=== PATIENT | male | born 1955 | race Hispanic/Latino ===

== ENCOUNTER 2017-11-22 08:04 | Inpatient (IN) | payer MEDICAID ==
--- NOTE | 2017-11-22 08:44 | ED PDOC ---
Arrival/HPI - General Historian: Patient - History of Present Illness Narrative History of Present Illness (Text): 11/22/17 08:36 Patient is 62 year old male with a past medical history of CAD s/p 1 stent (09/2016), KS x 1 (09/2016), DM, HTN, PAD (s/p 1 stent in left leg) and colon cancer (s/p resection) presenting to the emergency for worsening chest pain since last night. Chest pain started last night while he was laying down. The pain is located on the left side of his chest radiating down his left arm, across his chest down his right arm and up the left side of his neck. The pain is stabbing in nature and has been constant. The pain is exactly the same as when he had an KS last year. He took two Aspirin 325mg this morning. Nothing improves the pain and nothing makes it worse. He decided to come to the emergency room because the pain was not improving. He denies any nausea, vomiting, diaphoresis, shortness of breath, lightheadedness or dizziness. Patient is also complaining of left shoulder pain. Reports a couch falling his left shoulder and has been experiencing pain/soreness over since. PMD: none PMH: CAD s/p 1 stent (09/2016), KS x 1 (09/2016), DM, HTN, PAD (s/p 1 stent in left leg) and colon cancer (s/p resection) Social: recently moved to [place] from [place] to help take care of his mother. Still smokes half a pack per day, previous alcohol abuse, previously used to smoke crack but has not for "many years". Time/Duration: Other (12 hours) Symptom Onset: Sudden Symptom Course: Worsening Quality: Stabbing <Tee Vidal - Last Filed: 11/22/17 10:33> <Benjamin Kaur - Last Filed: 11/22/17 11:45> - General Chief Complaint: Chest Pain Time Seen by Provider: 11/22/17 08:18 Past Medical History - Provider Review Nursing Documentation Reviewed: Yes - Infectious Disease Hx of Infectious Diseases: None - Cardiac Hx Hypertension: Yes - Pulmonary Hx Respiratory Disorders: No - Neurological Hx Neurological Disorder: No - Endocrine/Metabolic Hx Diabetes Mellitus Type 2: Yes - Gastrointestinal Other/Comment: colon ca, abd hernia - Psychiatric Hx Substance Use: No - Anesthesia Hx Anesthesia: No <eTe Vidal - Last Filed: 11/22/17 10:33> Family/Social History - Physician Review Nursing Documentation Reviewed: Yes Family/Social History: Unknown Family HX Smoking Status: Heavy Smoker > 10 Cigarettes Daily Hx Alcohol Use: No Hx Substance Use: No <Tee Vidal - Last Filed: 11/22/17 10:33> Allergies/Home Meds <Tee Vidal - Last Filed: 11/22/17 10:33> <Benjamin Kaur - Last Filed: 11/22/17 11:45> Allergies/Adverse Reactions: Allergies No Known Allergies Allergy (Verified 11/22/17 08:24) Home Medications: Home Meds Medication Instructions Recorded Confirmed No Known Home Med 11/22/17 11/22/17 Review of Systems - Physician Review All systems were reviewed & negative as marked: Yes - Review of Systems Constitutional: Normal. absent: Fatigue, Fevers Eyes: Normal. absent: Vision Changes ENT: Normal Respiratory: Normal. absent: SOB Cardiovascular: Chest Pain, Orthopnea. absent: Palpitations, Edema, Calf Pain, Syncope Gastrointestinal: Normal. absent: Abdominal Pain, Constipation, Nausea, Vomiting Musculoskeletal: Neck Pain (left sided) Skin: Normal Neurological: Normal. absent: Headache, Dizziness Endocrine: Normal. absent: Diaphoresis Psychiatric: Normal <Tee Vidal - Last Filed: 11/22/17 10:33> Physical Exam Vital Signs Reviewed: Yes Vital Signs Temp Pulse Resp BP Pulse Ox 11/22/17 08:11 98.8 F 68 18 121/87 99 Temperature: Afebrile Blood Pressure: Normal Pulse: Regular Respiratory Rate: Normal Appearance: Positive for: Well-Appearing, Non-Toxic, Comfortable Pain Distress: None Mental Status: Positive for: Alert and Oriented X 3 - Systems Exam Head: Present: Atraumatic, Normocephalic Pupils: Present: PERRL Extroacular Muscles: Present: EOMI Conjunctiva: Present: Normal Mouth: Present: Moist Mucous Membranes Nose (External): Present: Atraumatic Neck: Present: Normal Range of Motion. No: Lymphadenopathy Respiratory/Chest: Present: Clear to Auscultation, Good Air Exchange. No: Respiratory Distress, Accessory Muscle Use Cardiovascular: Present: Regular Rate and Rhythm, Normal S1, S2. No: Murmurs, Rub, Gallop Abdomen: Present: Other (obese). No: Tenderness, Distention, Peritoneal Signs Upper Extremity: Present: Normal Inspection. No: Cyanosis, Edema, Tenderness, Erythema Lower Extremity: Present: Normal Inspection, Edema (2+ pitting b/l). No: CALF TENDERNESS, NORMAL PULSES Neurological: Present: GCS=15, CN II-XII Intact, Speech Normal Skin: Present: Warm, Dry, Normal Color. No: Rashes Psychiatric: Present: Alert, Oriented x 3, Normal Insight, Normal Concentration <Tee Vidal - Last Filed: 11/22/17 10:33> Vital Signs Temp Pulse Resp BP Pulse Ox 11/22/17 11:22 89 18 143/66 95 11/22/17 10:55 73 18 109/48 L 98 11/22/17 10:05 86 18 98/74 L 98 11/22/17 09:07 98 H 18 121/69 98 11/22/17 08:11 98.8 F 68 18 121/87 99 <Benjamin Kaur - Last Filed: 11/22/17 11:45> Medical Decision Making ED Course and Treatment: 11/22/17 08:36 Patient is a 62 year old male with known CAD s/p 1 stent presenting with worsening chest pain since last night. Patient took two Aspirin 325mg tablets this morning. EKG: Sinus rhythm @70bpm with multiple PVCs, no ST elevations or depressions * No previous EKG for comparison Give Nitro 0.4mg SL Labs CXR Patient also complaining of left shoulder pain x2 months after couch fell on his shoulder. Will obtain shoulder XR. 11/22/17 09:51 Patient has become diaphoretic but states that his chest pain has resolved with the nitro. BP dropped to 85/60 --> give 1L bolus of NS 11/22/17 10:34 Repeat EKG: sinus rhythm with sinus arrhythmia @73bpm, normal axis, no ST segment elevations or depressions. Trop negative. Elevated blood glucose, currently giving fluids - patient reports drinking large mug of apple cider prior to coming to hospital. Case discussed with Dr. Qi Cruz (Hospitalist) who has accepted patient to hospitalist service for tele obs, chest pain r/o ACS. - Lab Interpretations I have reviewed the lab results: Yes - RAD Interpretation Narrative RAD Interpretations (Text): 11/22/17 09:43 CXR: No active disease. Radiology Orders: 11/22/17 08:32 CHEST PORTABLE [RAD] Stat Almond Blancher Operator: Radiologist <Tee Vidal - Last Filed: 11/22/17 10:33> ED Course and Treatment: 10:34 62 yr old male w/ hx of KS, Stent p/w CP. Moderate risk Heart score. 1st trop negative, EKG w/ out STEMI. CXR unremarkable. Admitted to Dr. Tyson Wakefield service. - Lab Interpretations Lab Results: 11/22/17 09:40 11/22/17 09:40 Lab Results 11/22/17 09:40: TSH 3rd Generation 1.99 11/22/17 09:40: Sodium 133, Potassium 4.5, Chloride 99, Carbon Dioxide 23, Anion Gap 15, BUN 20, Creatinine 0.6 L, Est GFR ( Amer) > 60, Est GFR (Non-Af Amer) > 60, Random Glucose 421 H*, Calcium 9.0, Total Bilirubin 0.5, AST 21, ALT 22, Alkaline Phosphatase 104, Troponin I 0.01, NT-Pro-B Natriuret Pep 52.5, Total Protein 8.2, Albumin 4.1, Globulin 4.1, Albumin/Globulin Ratio 1.0 L 11/22/17 09:40: PT 11.0, INR 0.96, APTT 26.5 11/22/17 09:40: WBC 9.1, RBC 5.30, Hgb 16.5, Hct 46.4, MCV 87.5, MCH 31.1, MCHC 35.6, RDW 13.2, Plt Count 217, MPV 10.2, Gran % 52.3, Lymph % (Auto) 38.3 H, Bryan % (Auto) 7.2 H, Eos % (Auto) 1.5, Baso % (Auto) 0.7, Gran # 4.76, Lymph # (Auto) 3.5 H, Bryan # (Auto) 0.7 H, Eos # (Auto) 0.1, Baso # (Auto) 0.06 - RAD Interpretation Radiology Orders: 11/22/17 08:32 CHEST PORTABLE [RAD] Stat 11/22/17 09:46 SHOULDER LEFT [RAD] Routine - Medication Orders Current Medication Orders: Discontinued Medications Sodium Chloride (Sodium Chloride 0.9%) 1,000 mls @ 999 mls/hr IV .Q1H1M STA Stop: 11/22/17 10:50 Last Admin: 11/22/17 10:07 Dose: 999 mls/hr eMAR Start Stop Document 11/22/17 10:07 EAR (Rec: 11/22/17 10:07 EAR [id number]) Intravenous Solution Start Date 11/22/17 Start Time 10:07 End Date 11/22/17 End time 11:10 Total Infusion Time 63 Nitroglycerin (Nitrostat Sl Tab) 0.4 mg SL STAT STA Stop: 11/22/17 08:53 Last Admin: 11/22/17 09:06 Dose: 0.4 mg <Benjamin Kaur - Last Filed: 11/22/17 11:45> - PA / COLLEGE COUNSELOR / Resident Statement / has examined the patient and agrees with the treatment plan. <Benjamin Kaur - Last Filed: 11/22/17 11:45> Disposition/Present on Arrival - Present on Arrival History of DVT/PE: No History of Uncontrolled Diabetes: No Urinary Catheter: No History of Decub. Ulcer: No History Surgical Site Infection Following: None <Tee Vidal - Last Filed: 11/22/17 10:33> - Present on Arrival Any Indicators Present on Arrival: No - Disposition Have Diagnosis and Disposition been Completed?: Yes Disposition Time: 10:34 <Benjamin Kaur - Last Filed: 11/22/17 11:45> - Disposition Diagnosis: Chest pain Condition: GOOD
--- NOTE | 2017-11-22 09:38 | RAD ---
Date of service: 11/22/2017 HISTORY: cp COMPARISON: No prior. FINDINGS: LUNGS: No active pulmonary disease. PLEURA: No significant pleural effusion identified, no pneumothorax apparent. CARDIOVASCULAR: Normal. OSSEOUS STRUCTURES: No significant abnormalities. VISUALIZED UPPER ABDOMEN: Normal. OTHER FINDINGS: None. IMPRESSION: No active disease.
[2017-11-22] MEDS ORDERED: Sodium Chloride 0.9% 1,000 ML IV STA ×2 (09:50→15:27)
--- NOTE | 2017-11-22 09:51 | CARD ---
APPROVED REPORT Date of service: 11/22/2017 EKG Measurement Heart [id number] <Conclusion> Sinus rhythm with occasional premature ventricular complexes Q V1-V2 Possible Old Septal infarct?
[2017-11-22 09:58] LABS: BASO # 0.06 K/mm3 (0.0-2.0); BASO % 0.7 % (0.0-3.0); EOS # 0.1 (0.0-0.7); EOS % 1.5 % (1.5-5.0); GRAN # 4.76 (1.4-6.5); GRAN % 52.3 % (50.0-68.0); HEMOGLOBIN 16.5 g/dL (14.0-18.0); LYMPH # 3.5 (1.2-3.4); LYMPH % 38.3 % (22.0-35.0); MEAN CELL VOLUME 87.5 fl (80.0-105.0); MEAN CORPUSCULAR HEMOGLOBIN 31.1 pg (25.0-35.0); MEAN CORPUSCULAR HGB CONC 35.6 g/dl (31.0-37.0); MEAN PLATELET VOLUME 10.2 fl (7.0-11.0); MONO # 0.7 (0.1-0.6); MONO % 7.2 % (1.0-6.0); RBC 5.3 10^6/uL (3.5-6.1); RED CELL DISTRIBUTION WIDTH 13.2 % (11.5-14.5); WHITE BLOOD COUNT 9.1 10^3/ul (4.5-11.0)
[2017-11-22 10:06] LABS: INR 0.96; PARTIAL THROMBOPLASTIN TIME 26.5 Seconds (25.1-36.5)
[2017-11-22 10:11] LABS: ALBUMIN 4.1 g/dL (3.0-4.8); ALT/SGPT 22 U/L (7-56); AST/SGOT 21 U/L (17-59); BLOOD UREA NITROGEN 20 mg/dL (7-21); GFR NON-AFRICAN AMERICAN > 60
[2017-11-22 10:15] LABS: B-TYPE NATRIURETIC PEPTIDE 52.5 pg/mL (0-450); TROPONIN I 0.01 ng/mL
[2017-11-22] MEDS ORDERED: Albuterol-Ipratrop 3 mg / 0.5 (3 ml) UD IH PRN (11:39)
[2017-11-22] MEDS ORDERED: Dextrose 50% SYRINGE Inj (50 ml) IV PRN (11:40)
--- NOTE | 2017-11-22 12:31 | CP.PCM.HP ---
<Marlene Galdamez - Last Filed: 11/22/17 17:48> History of Present Illness - History of Present Illness History of Present Illness: History and Physical for Dr. Sirisha Cruz CC: Chest pain Mr. Mccauley is a 62M with PMH HTN, DM, CAD (s/r stent 2017), PAD (s/p stent left leg), OK 2917, Colon Cancer (s/p resection) who presents today to [facility] [place] [facility] ED with worsening sharp chest pain that has not been resolved with taking two 325mg ASA this am. Patient states that he has intermittent chest pain chronically at rest but was concerned when his pain was not improving over the past 24 hours. He additionally complains of bilateral shoulder pain which he states has been present since before his chest pain and endorses that his left shoulder pain began after an injury moving a couch several months ago. He denies any aggravating or alleviating factors, CUTLER, neck pain, SOB, abdominal pain, and lower extremity pain. PMH:HTN, DM, CAD s/p stent x1 (2017), PAD s/p stent x1 left leg, OK in 2017 PSH: cardiac stent placement. left leg stent placement, coloon cancer resection Social: previous ETOH and crack cocaine abuse, current 1/2 ppd smoker (previously 5ppd x 40yrs) Home Meds: patient takes ASA at home for chest pain but is noncompliant with all other medications Family HX: mother alive with glaucoma, father from bleeding complications (patient unsure of specifics) all: nkda PMD: recently moved no PMD Present on Admission - Present on Admission Any Indicators Present on Admission: Yes History of Uncontrolled Diabetes: Yes Review of Systems - Review of Systems All systems: reviewed and no additional remarkable complaints except (as per HPI) Past Patient History - Infectious Disease Hx of Infectious Diseases: None - Past Social History Smoking Status: Heavy Smoker > 10 Cigarettes Daily - CARDIAC Hx Hypertension: Yes - PULMONARY Hx Respiratory Disorders: No - NEUROLOGICAL Hx Neurological Disorder: No - ENDOCRINE/METABOLIC Hx Diabetes Mellitus Type 2: Yes - GASTROINTESTINAL Other/Comment: colon ca, abd hernia - PSYCHIATRIC Hx Substance Use: No - ANESTHESIA Hx Anesthesia: No Meds Allergies/Adverse Reactions: Allergies Allergy/AdvReac Type Severity Reaction Status Date / Time No Known Allergies Allergy Verified 11/22/17 08:24 Physical Exam - Constitutional Appears: Well, Non-toxic, No Acute Distress - Head Exam Head Exam: ATRAUMATIC, NORMOCEPHALIC - Eye Exam Eye Exam: EOMI - ENT Exam ENT Exam: Mucous Membranes Moist - Respiratory Exam Respiratory Exam: Wheezes (inspiratoy and expiratory wheezes bilaterally in all 5 lobes) - Cardiovascular Exam Cardiovascular Exam: REGULAR RHYTHM. absent: JVD - GI/Abdominal Exam GI & Abdominal Exam: Hernia (large ventral hernia, soft nontender, no overlying skin changes, umbilical hernia is present and reducible as well), Soft. absent: Distended, Firm, Guarding, Rigid, Tenderness Additional comments: large vertical midline scar, two 5-7 cm scars noted in the LLQ and the RLQ - Extremities Exam Extremities exam: Positive for: normal capillary refill, pedal pulses present. Negative for: calf tenderness, pedal edema, tenderness Additional comments: extremities warm and well perfused, radial pulses 2+ bilaterally - Neurological Exam Neurological exam: Alert, Oriented x3 - Psychiatric Exam Psychiatric exam: Normal Affect, Normal Mood - Skin Skin Exam: Dry, Intact, Normal Color, Warm Results - Vital Signs Recent Vital Signs: Last Vital Signs Temp 98.8 F 11/22/17 08:11 Pulse 89 11/22/17 11:22 Resp 18 11/22/17 11:22 BP 143/66 11/22/17 11:22 Pulse Ox 95 11/22/17 11:22 - Labs Result Diagrams: 11/22/17 09:40 11/22/17 09:40 Labs: Laboratory Results - last 24 hr 11/22/17 11/22/17 11/22/17 09:40 09:40 09:40 WBC 9.1 RBC 5.30 Hgb 16.5 Hct 46.4 MCV 87.5 MCH 31.1 MCHC 35.6 RDW 13.2 Plt Count 217 MPV 10.2 Gran % 52.3 Lymph % (Auto) 38.3 H [place] % (Auto) 7.2 H Eos % (Auto) 1.5 Baso % (Auto) 0.7 Gran # 4.76 Lymph # (Auto) 3.5 H [place] # (Auto) 0.7 H Eos # (Auto) 0.1 Baso # (Auto) 0.06 PT 11.0 INR 0.96 APTT 26.5 Sodium 133 Potassium 4.5 Chloride 99 Carbon Dioxide 23 Anion Gap 15 BUN 20 Creatinine 0.6 L Est GFR ( Amer) > 60 Est GFR (Non-Af Amer) > 60 POC Glucose (mg/dL) Random Glucose 421 H* Calcium 9.0 Total Bilirubin 0.5 AST 21 ALT 22 Alkaline Phosphatase 104 Troponin I 0.01 NT-Pro-B Natriuret Pep 52.5 Total Protein 8.2 Albumin 4.1 Globulin 4.1 Albumin/Globulin Ratio 1.0 L TSH 3rd Generation 11/22/17 11/22/17 09:40 12:19 WBC RBC Hgb Hct MCV MCH MCHC RDW Plt Count MPV Gran % Lymph % (Auto) [place] % (Auto) Eos % (Auto) Baso % (Auto) Gran # Lymph # (Auto) [place] # (Auto) Eos # (Auto) Baso # (Auto) PT INR APTT Sodium Potassium Chloride Carbon Dioxide Anion Gap BUN Creatinine Est GFR ( Amer) Est GFR (Non-Af Amer) POC Glucose (mg/dL) 328 H Random Glucose Calcium Total Bilirubin AST ALT Alkaline Phosphatase Troponin I NT-Pro-B Natriuret Pep Total Protein Albumin Globulin Albumin/Globulin Ratio TSH 3rd Generation 1.99 Assessment & Plan - Assessment and Plan (Free Text) Assessment: 62 yr old Male with PMH HTN, DM, CAD (s/r stent 2017), PAD (s/p stent left leg), [place] 291, Colon Cancer (s/p resection) presenting c/o worsening/ unimproving chest pain over the past 24 hours, received nitroglycerin in the ED with improvement of his chest pain Plan: Chest Pain: - Troponin neg x1 will f/u trend - CXR neg, EKG shows PVC, and possible old septal infarct - BNP 52.5 normal - CTA with dissection protocol to r/o AAA in the setting of male patient with smoking history and hypotension - ECHO ordered - Cardiology consulted, recs appreciated - nitroglycerin and ASA given in ED HLD: - lipid panel ordered - start lipitor and tricor - will monitor - endocrinology consulted, recs appreciated DM: - BS 421 no anion gap - HHD with mod consistent carb - ISS med - Blood glucose checks ACHS - HBA1c 12.7 - maintain euglycemia HTN: - hold HTN med sin the setting of hypotension - will monitor and reassess PRN Patient seen and discussed with Dr. Sirisha Galdamez, PGY 1 - Date & Time Date: 11/22/17 Time: 11:04 <Sirisha Cruz R - Last Filed: 11/23/17 07:31> Results - Vital Signs Recent Vital Signs: Last Vital Signs Temp 97.9 F 11/23/17 06:00 Pulse 64 11/23/17 06:00 Resp 18 11/23/17 06:00 BP 96/50 L 11/23/17 06:00 Pulse Ox 96 11/23/17 06:00 - Labs Result Diagrams: 11/23/17 03:43 11/23/17 03:43 Labs: Laboratory Results - last 24 hr 11/22/17 11/22/17 11/22/17 09:40 09:40 09:40 WBC 9.1 RBC 5.30 Hgb 16.5 Hct 46.4 MCV 87.5 MCH 31.1 MCHC 35.6 RDW 13.2 Plt Count 217 MPV 10.2 Gran % 52.3 Lymph % (Auto) 38.3 H [place] % (Auto) 7.2 H Eos % (Auto) 1.5 Baso % (Auto) 0.7 Gran # 4.76 Lymph # (Auto) 3.5 H [place] # (Auto) 0.7 H Eos # (Auto) 0.1 Baso # (Auto) 0.06 PT 11.0 INR 0.96 APTT 26.5 Sodium 133 Potassium 4.5 Chloride 99 Carbon Dioxide 23 Anion Gap 15 BUN 20 Creatinine 0.6 L Est GFR ( Amer) > 60 Est GFR (Non-Af Amer) > 60 POC Glucose (mg/dL) Random Glucose 421 H* Hemoglobin A1c Calcium 9.0 Total Bilirubin 0.5 AST 21 ALT 22 Alkaline Phosphatase 104 Troponin I 0.01 NT-Pro-B Natriuret Pep 52.5 Total Protein 8.2 Albumin 4.1 Globulin 4.1 Albumin/Globulin Ratio 1.0 L Triglycerides Cholesterol LDL Cholesterol Direct HDL Cholesterol TSH 3rd Generation Urine Opiates Screen Urine Methadone Screen Ur Barbiturates Screen Ur Phencyclidine Scrn Ur Amphetamines Screen U Benzodiazepines Scrn U Oth Cocaine Metabols U Cannabinoids Screen Alcohol, Quantitative 11/22/17 11/22/17 11/22/17 09:40 12:19 12:45 WBC RBC Hgb Hct MCV MCH MCHC RDW Plt Count MPV Gran % Lymph % (Auto) [place] % (Auto) Eos % (Auto) Baso % (Auto) Gran # Lymph # (Auto) [place] # (Auto) Eos # (Auto) Baso # (Auto) PT INR APTT Sodium Potassium Chloride Carbon Dioxide Anion Gap BUN Creatinine Est GFR ( Amer) Est GFR (Non-Af Amer) POC Glucose (mg/dL) 328 H Random Glucose Hemoglobin A1c Calcium Total Bilirubin AST ALT Alkaline Phosphatase Troponin I NT-Pro-B Natriuret Pep Total Protein Albumin Globulin Albumin/Globulin Ratio Triglycerides Cholesterol LDL Cholesterol Direct HDL Cholesterol TSH 3rd Generation 1.99 Urine Opiates Screen Urine Methadone Screen Ur Barbiturates Screen Ur Phencyclidine Scrn Ur Amphetamines Screen U Benzodiazepines Scrn U Oth Cocaine Metabols U Cannabinoids Screen Alcohol, Quantitative < 10 11/22/17 11/22/17 11/22/17 12:45 12:45 17:36 WBC RBC Hgb Hct MCV MCH MCHC RDW Plt Count MPV Gran % Lymph % (Auto) [place] % (Auto) Eos % (Auto) Baso % (Auto) Gran # Lymph # (Auto) [place] # (Auto) Eos # (Auto) Baso # (Auto) PT INR APTT Sodium Potassium Chloride Carbon Dioxide Anion Gap BUN Creatinine Est GFR ( Amer) Est GFR (Non-Af Amer) POC Glucose (mg/dL) 263 H Random Glucose Hemoglobin A1c 12.7 H Calcium Total Bilirubin AST ALT Alkaline Phosphatase Troponin I NT-Pro-B Natriuret Pep Total Protein Albumin Globulin Albumin/Globulin Ratio Triglycerides 1508 H Cholesterol 423 H LDL Cholesterol Direct 77 HDL Cholesterol 30 TSH 3rd Generation Urine Opiates Screen Urine Methadone Screen Ur Barbiturates Screen Ur Phencyclidine Scrn Ur Amphetamines Screen U Benzodiazepines Scrn U Oth Cocaine Metabols U Cannabinoids Screen Alcohol, Quantitative 11/22/17 11/22/17 11/22/17 19:20 21:00 21:39 WBC RBC Hgb Hct MCV MCH MCHC RDW Plt Count MPV Gran % Lymph % (Auto) [place] % (Auto) Eos % (Auto) Baso % (Auto) Gran # Lymph # (Auto) [place] # (Auto) Eos # (Auto) Baso # (Auto) PT INR APTT Sodium Potassium Chloride Carbon Dioxide Anion Gap BUN Creatinine Est GFR ( Amer) Est GFR (Non-Af Amer) POC Glucose (mg/dL) 288 H Random Glucose Hemoglobin A1c Calcium Total Bilirubin AST ALT Alkaline Phosphatase Troponin I 0.07 D 0.08 NT-Pro-B Natriuret Pep Total Protein Albumin Globulin Albumin/Globulin Ratio Triglycerides Cholesterol LDL Cholesterol Direct HDL Cholesterol TSH 3rd Generation Urine Opiates Screen Urine Methadone Screen Ur Barbiturates Screen Ur Phencyclidine Scrn Ur Amphetamines Screen U Benzodiazepines Scrn U Oth Cocaine Metabols U Cannabinoids Screen Alcohol, Quantitative 11/23/17 11/23/17 11/23/17 00:18 03:43 03:43 WBC 6.2 D RBC 5.10 Hgb 15.6 Hct 44.3 MCV 86.9 MCH 30.6 MCHC 35.2 RDW 12.7 Plt Count 187 MPV 9.3 Gran % 42.0 L Lymph % (Auto) 44.7 H [place] % (Auto) 9.8 H Eos % (Auto) 2.4 Baso % (Auto) 1.1 Gran # 2.58 Lymph # (Auto) 2.8 [place] # (Auto) 0.6 Eos # (Auto) 0.2 Baso # (Auto) 0.07 PT INR APTT Sodium 136 Potassium 4.6 Chloride 103 Carbon Dioxide 24 Anion Gap 13 BUN 12 Creatinine 0.5 L Est GFR ( Amer) > 60 Est GFR (Non-Af Amer) > 60 POC Glucose (mg/dL) Random Glucose 275 H Hemoglobin A1c Calcium 8.7 Total Bilirubin 0.6 AST 18 ALT 22 Alkaline Phosphatase 95 Troponin I 0.08 NT-Pro-B Natriuret Pep Total Protein 7.5 Albumin 3.7 Globulin 3.8 Albumin/Globulin Ratio 1.0 L Triglycerides Cholesterol LDL Cholesterol Direct HDL Cholesterol TSH 3rd Generation Urine Opiates Screen Negative Urine Methadone Screen Negative Ur Barbiturates Screen Negative Ur Phencyclidine Scrn Negative Ur Amphetamines Screen Negative U Benzodiazepines Scrn Negative U Oth Cocaine Metabols Negative U Cannabinoids Screen Negative Alcohol, Quantitative Attending/Attestation - Attestation I have personally seen and examined this patient.: Yes I have fully participated in the care of the patient.: Yes I have reviewed all pertinent clinical information: Yes Notes (Text): Patient seen and examined by me with resident at 3:30PM on 11/22/17 with resident. Case including discharge plan discussed with resident. Agree with above with following additions/corrections. Patient is 62-year-old male with past medical history significant for hypertension, type 2 diabetes, coronary artery disease, peripheral artery disease status post stent to the left leg, and colon cancer status post resection that presented to the emergency room with chest pain. Patient states that he has been having left shoulder pain for approximately 2 months now. States this happened when he was carrying a couch. He states that he has also been having chest pain since August 2017. He states that the pain starts as pressure and his bilateral shoulders and radiates down to his chest. The pain also radiates into his neck. Pain comes and goes and lasts approximately 30 minutes. There is no associated nausea, vomiting, or diaphoresis. He states that the pain starts after he has been exerting himself and then lies down. He states that the pain seems to go away when he gets up again and starts to do things. She states he has not seen a physician in 4-5 years and does not take any medications at home. However, patient does take aspirin when he has chest pain. Patient took aspirin 325 mg this morning. Patient states that he does get dizzy and lightheaded when he ambulates. No fevers or chills. No headaches. No shortness of breath. No change in vision. No nausea, vomiting, abdominal pain. No dysuria. No diarrhea or constipation. Patient denies any current chest pain. 12 point review of systems reviewed by me. Please see above HPI. All other systems negative. Family history. Mother is alive and has chronic respiratory failure, glaucoma, and blindness. Father from needing complications. Physical exam: Gen: Awake and alert lying in bed in no acute distress HEENT: Normocephalic, atraumatic. Extraocular muscles intact, pupils equal reactive. No scleral icterus. No pharyngeal erythema or exudate appreciated. Oropharynx is pink and moist. Neck is supple. Hearing grossly intact. Nose externally unremarkable. Cardiovascular: Normal rhythm. Normal S1, S2. No murmurs, rubs, or gallops appreciated Pulmonary: Normal respiratory effort. Decreased breath sounds at bases. Positive wheezing throughout. No rhonchi or rales appreciated appreciated. Gastrointestinal: Soft, nontender. Obese abdomen. Positive hernia. Nondistended. Positive bowel sounds all 4 quadrants, no guarding. Musculoskeletal: Moves all extremities. No calf tenderness. No edema appreciated. Central nervous system: AAO x 3. CN2-12 grossly intact Dermatologic: Skin warm and dry. Assessment and plan. Patient is 62-year-old male with past medical history significant for hypertension, type 2 diabetes, coronary artery disease, peripheral artery disease status post stent to the left leg, and colon cancer status post resection that presented to the emergency room with chest pain. 1. Chest pain. Rule out ACS. Follow up serial troponins. TSH within normal limits. ProBNP 52.5. Follow-up chest CT to rule out dissection and pulmonary emboli. Follow-up hemoglobin A1c. Follow up 2-D echo. Cardiology consulted, follow-up recommendations. Started on aspirin and Lipitor. Monitor on telemetry. 2. Hypotension. Unclear etiology. 2 IV fluid boluses given. Continue with normal saline at 100 mL an hour. Follow up cardio recommendations. 3. Hypertriglyceridemia. Triglycerides 1508. Started on fenofibrate and Lipitor. Patient counseled on diet and exercise. Endocrinology consulted. 4. Type 2 diabetes, uncontrolled with hyperglycemia. Patient does not take any medications at home. Patient started on insulin sliding scale. Follow-up hemoglobin A1c. Monitor Accu-Cheks. Diabetic diet. Endocrinology consulted. 5. Left shoulder pain. Left shoulder x-ray per radiologist shows normal radiographs of the left shoulder. Continue to monitor for now. 6. Coronary artery disease. Patient does not take any medications at home. Patient started on aspirin and Lipitor. Cardiology consulted, follow-up recommendations. Beta du held as patient hypotensive. 7. History of peripheral artery disease with stent placement in left lower extremity. He should does not take any medications at home. 8. Tobacco abuse. Likely has underlying COPD. Patient counseled on cessation. Patient should follow up with outpatient court collections officer for PFT testing. Patient placed on nebulizer treatments as needed. Chest x-ray per radiologist shows no active disease. 9. Patient is a full code. Case discussed in detail with the patient regarding current diagnosis and treatment plan. All questions answered.
--- NOTE | 2017-11-22 12:55 | RAD ---
Date of service: 11/22/2017 PROCEDURE: Radiographs of the Left Shoulder HISTORY: left shoulder pain, couch fell on 2 months ago COMPARISON: No prior. FINDINGS: BONES: Normal. No fracture. JOINTS: Normal. Glenohumeral and acromioclavicular joints preserved. No osteoarthritis. SOFT TISSUES: Normal. OTHER FINDINGS: None. IMPRESSION: Normal radiographs of the left shoulder.
--- NOTE | 2017-11-22 13:04 | CARD ---
APPROVED REPORT Date of service: 11/22/2017 EKG Measurement Heart [id number] <Conclusion> Sinus rhythm. PAC.
[2017-11-22 13:10] LABS: HDL CHOLESTEROL 30 mg/dL (29-60)
[2017-11-22 13:21] LABS: LDL CHOLESTEROL 77 mg/dL (0-129)
[2017-11-22] MEDS: Insulin Reg-MEDIUM-Coverage SC SCH ×2 (17:53→22:26)
[2017-11-22] MEDS: Sodium Chloride 0.9% 1,000 ML IV SCH (17:53)
[2017-11-22] MEDS ORDERED: Insulin Regular 1 UNITS/0.01 ML ML ONE ×2 (17:53→17:54)
--- NOTE | 2017-11-22 18:10 | CT ---
PROCEDURE: CT Angiography Chest, Abdomen and Pelvis with and without intravenous contrast HISTORY: Chest pain; hypotension COMPARISON: None. TECHNIQUE: Contiguous axial images of the chest, abdomen and pelvis were obtained in the phase of aortic enhancement. A noncontrast enhanced CT of the chest was also obtained to evaluate for possible intramural thrombus. Coronal and sagittal reformats were generated. IV dose administered: 150 cc Omnipaque 350. Radiation dose: Total exam DLP = 1872.69 mGy-cm. This CT exam was performed using one or more of the following dose reduction techniques: Automated exposure control, adjustment of the mA and/or kV according to patient size, and/or use of iterative reconstruction technique. FINDINGS: CT ANGIOGRAPHY OF THE CHEST WITH & WITHOUT CONTRAST: AORTA (CHEST AND ABDOMEN): The thoracic and abdominal aorta are unremarkable, without aneurysm, dissection or rupture. No intramural thrombus identified in the thoracic aorta on the non-contrast ct of the chest. The celiac axis, superior mesenteric artery, inferior mesenteric artery and the renal arteries are widely patent. The pelvic arteries are unremarkable. LUNGS: Faint multifocal primarily perihilar infiltrates. The findings suggests a component of pulmonary edema. MEDIASTINUM: Unremarkable. Normal caliber aorta and pulmonary arterial trunk. No aortic dissection. Normal size heart. LYMPH NODES: Unremarkable. PLEURA: Unremarkable. No pneumothorax. No pleural fluid. BONES: Unremarkable. OTHER FINDINGS: None. CT ANGIOGRAPHY OF THE ABDOMEN AND PELVIS WITH CONTRAST: LIVER: Unremarkable. No gross lesion or ductal dilatation. GALLBLADDER AND BILE DUCTS: Unremarkable. PANCREAS: Unremarkable. No gross lesion or ductal dilatation. SPLEEN: Unremarkable. ADRENALS: Unremarkable. No mass. KIDNEYS AND URETERS: Unremarkable. No hydronephrosis. No solid mass. VASCULATURE: Unremarkable. No aortic aneurysm. STOMACH AND BOWEL: Large anterior abdominal wall midline hernia containing nondistended colon and small bowel. No evidence of incarceration or obstruction Additional left lower quadrant hernia containing fat only. APPENDIX: No abnormalities to suggest acute appendicitis. No right lower quadrant inflammatory processes identified. PERITONEUM: Unremarkable. No free fluid. No free air. LYMPH NODES: Unremarkable. No enlarged lymph nodes. BLADDER: Unremarkable. REPRODUCTIVE: Unremarkable. BONES: No acute fracture. OTHER FINDINGS: None. IMPRESSION: No evidence of thoracic or aortic aneurysm or dissection. No visible central pulmonary emboli. Faint perihilar infiltrates in the appropriate clinical setting can represent mild pulmonary edema. Large midline anterior abdominal wall periumbilical hernia containing colon and small bowel. Smaller anterior left lateral wall hernia containing fat only. Additional benign and/or incidental findings described above.
[2017-11-22 22:50] VITALS: BMI 43.2
[2017-11-22] MEDS ORDERED: Pneumococcal 23-Valent Vaccine IM ONE (22:50)
[2017-11-22] MEDS ORDERED: Influenza Vaccine 60 mcg/0.5 mL SYR (4YR UP) IM ONE (22:50)
[2017-11-23 01:55] LABS: BARBITURATES, UR NEGATIVE (NEGATIVE); BENZODIAZEPINES, UR NEGATIVE (NEGATIVE); OPIATES, UR NEGATIVE (NEGATIVE); PHENCYCLIDINE, UR NEGATIVE (NEGATIVE)
[2017-11-23 03:58] LABS: BASO # 0.07 K/mm3 (0.0-2.0); BASO % 1.1 % (0.0-3.0); EOS # 0.2 (0.0-0.7); EOS % 2.4 % (1.5-5.0); GRAN # 2.58 (1.4-6.5); HEMOGLOBIN 15.6 g/dL (14.0-18.0); LYMPH # 2.8 (1.2-3.4); LYMPH % 44.7 % (22.0-35.0); MEAN CELL VOLUME 86.9 fl (80.0-105.0); MEAN CORPUSCULAR HEMOGLOBIN 30.6 pg (25.0-35.0); MEAN CORPUSCULAR HGB CONC 35.2 g/dl (31.0-37.0); MEAN PLATELET VOLUME 9.3 fl (7.0-11.0); MONO # 0.6 (0.1-0.6); MONO % 9.8 % (1.0-6.0); RBC 5.1 10^6/uL (3.5-6.1); RED CELL DISTRIBUTION WIDTH 12.7 % (11.5-14.5); WHITE BLOOD COUNT 6.2 10^3/ul (4.5-11.0)
[2017-11-23 04:15] LABS: TROPONIN I 0.08 ng/mL
[2017-11-23 04:51] LABS: ALBUMIN 3.7 g/dL (3.0-4.8); ALT/SGPT 22 U/L (7-56); AST/SGOT 18 U/L (17-59); BLOOD UREA NITROGEN 12 mg/dL (7-21); CALCIUM 8.7 mg/dL (8.4-10.5); GFR NON-AFRICAN AMERICAN > 60
[2017-11-23] MEDS: Sodium Chloride 0.9% 1,000 ML IV SCH ×2 (05:30→18:51)
--- NOTE | 2017-11-23 07:03 | CP.PCM.PN ---
Subjective - Date & Time of Evaluation Date of Evaluation: 11/23/17 Time of Evaluation: 07:03 - Subjective Subjective: INTERNAL MEDICINE PROGRESS NOTE FOR DR. TOM Echols D.O. PGY-1 Patient seen and examined at bedside this am. Denies acute complaints. He reports that he gets dizziness when he walks around. Denies fevers, chills, headache, chest pain, palpitations, shortness of breath, nausea, vomiting, constipation, diarrhea. Objective - Vital Signs/Intake and Output Vital Signs (last 24 hours): Temp Pulse Resp BP Pulse Ox 97.9 F 64 18 96/50 L 96 11/23/17 06:00 11/23/17 06:00 11/23/17 06:00 11/23/17 06:00 11/23/17 06:00 - Medications Medications: Current Medications Albuterol/Ipratropium (Duoneb 3 Mg/0.5 Mg (3 Ml) Ud) 3 ml IH Q4H PRN PRN Reason: Shortness of Breath Aspirin (Aspirin Chewable) 81 mg PO DAILY [facility] Atorvastatin Calcium (Lipitor) 10 mg PO DIN [facility] Last Admin: 11/22/17 17:53 Dose: 10 mg Dextrose (Dextrose 50% Inj) 0 ml IV STAT PRN; Protocol PRN Reason: Hypoglycemia Protocol Fenofibrate (Tricor) 145 mg PO DAILY [facility] Dextrose (Dextrose 5% In Water 1000 Ml) 1,000 mls @ 0 mls/hr IV .Q0M PRN; Protocol PRN Reason: Hypoglycemia Protocol Sodium Chloride (Sodium Chloride 0.9%) 1,000 mls @ 100 mls/hr IV .Q10H [facility] Last Admin: 11/23/17 05:30 Dose: 100 mls/hr Insulin Detemir (Levemir) 20 unit SC HS PAKO Insulin Human Lispro (Humalog Low) 0 units SC ACHS PAKO; Protocol Insulin Human Lispro (Humalog) 8 units SC AC PAKO Nicotine (Nicoderm Cq) 1 patch TD DAILY [facility] - Labs Labs: 11/23/17 03:43 11/23/17 03:43 PT 11.0 SECONDS (9.4-12.5) 11/22/17 09:40 INR 0.96 11/22/17 09:40 APTT 26.5 Seconds (25.1-36.5) 11/22/17 09:40 - Constitutional Appears: Well, Non-toxic, No Acute Distress - Head Exam Head Exam: NORMAL INSPECTION, NORMOCEPHALIC - Eye Exam Eye Exam: EOMI, Normal appearance - ENT Exam ENT Exam: Mucous Membranes Moist, Normal Exam - Neck Exam Neck Exam: Normal Inspection - Respiratory Exam Respiratory Exam: Clear to Ausculation Bilateral, NORMAL BREATHING PATTERN - Cardiovascular Exam Cardiovascular Exam: REGULAR RHYTHM, +S1, +S2 - GI/Abdominal Exam GI & Abdominal Exam: Soft. absent: Tenderness Additional comments: Large non-reducible periumbilical hernia present. - Extremities Exam Extremities Exam: Normal Inspection. absent: Calf Tenderness - Back Exam Back Exam: NORMAL INSPECTION - Neurological Exam Neurological Exam: Alert, Awake, Oriented x3 - Psychiatric Exam Psychiatric exam: Normal Affect, Normal Mood - Skin Skin Exam: Dry, Intact, Warm Assessment and Plan - Assessment and Plan (Free Text) Assessment: 62-year-old male with past medical history significant for hypertension, type 2 diabetes, coronary artery disease, peripheral artery disease status post stent to the left leg, and colon cancer status post resection that presented to the emergency room with chest pain. Plan: Chest pain. Rule out ACS Follow up troponins 0.7, 0.8, 0.8 TSH within normal limits. ProBNP 52.5. CTA negative for thoracic/aortic aneurysm/dissection Hgb A1c: 12.7 Follow up 2-D echo. Cardiology consulted, follow-up recommendations. Started on aspirin and Lipitor. Monitor on telemetry. Hypotension. Unclear etiology. Obtain orthostatic vital signs Continue with normal saline at 100 mL an hour. Hold beta-du Follow up cardio recommendations. Hypertriglyceridemia. Triglycerides 1508. Started on fenofibrate and Lipitor. Patient counseled on diet and exercise. Endocrinology consulted. Appreciate recs Type 2 diabetes, uncontrolled with hyperglycemia. Patient does not take any medications at home. Patient started on lispro AC and detemir HS per endocrinology recs Patient started on insulin sliding scale. Follow-up hemoglobin A1c. Monitor Accu-Cheks. Diabetic diet. Endocrinology consulted. Left shoulder pain. Left shoulder x-ray per radiologist shows normal radiographs of the left shoulder. Continue to monitor for now. Coronary artery disease. Patient does not take any medications at home. Patient started on aspirin and Lipitor. Cardiology consulted, follow-up recommendations. Beta du held as patient hypotensive. History of peripheral artery disease with stent placement in left lower extremity. He does not take any medications at home Continue with aspirin, atorvastatin Tobacco abuse. Likely has underlying COPD. Patient counseled on cessation. Patient started on nicotine patch Patient should follow up with outpatient director automotive for PFT testing. Patient placed on nebulizer treatments as needed. Chest x-ray per radiologist shows no active disease. DVT/GI PPx: Hep/Protonix Case seen, examined and discussed with attending physician, Dr. Cruz
[2017-11-23] MEDS: Insulin Lispro 1 UNITS/0.01 ML SC SCH ×3 (11:43→17:24)
[2017-11-23] MEDS: Insulin Lispro (humaLOG) LOW Coverage SC SCH ×3 (11:44→22:15)
--- NOTE | 2017-11-23 12:56 | CON ---
DATE: 11/23/2017 ENDOCRINOLOGY CONSULT LOCATION: In room 260. HISTORY OF PRESENT ILLNESS: This is a 62-year-old male with known history of type 2 diabetes and hypertension, currently off his diabetic medications for some months now and presenting here with sudden onset of precordial chest pain and is being referred now for further metabolic management of uncontrolled type 2 diabetes and marked dyslipidemia with triglyceride levels of 1508 and cholesterol levels of 423 mg/dL. PAST MEDICAL HISTORY: As mentioned above, history of type 2 diabetes, previously on oral hypoglycemic therapy, which he discontinued with no further medical followup; history of hypertension and dyslipidemia; history of significant coronary artery disease with a prior coronary stent placement with peripheral arterial disease and vasculopathy and also a previous left leg stent placement. History of a previous myocardial infarction in 2017 as noted and is currently on aspirin therapy as given. History of colonic carcinoma and underwent a resection 7 years ago as noted. FAMILY HISTORY: Positive for hypertension and diabetes. SOCIAL HISTORY: The patient admits to currently actively smoking close to a pack of cigarettes a day, but previously was on 5 packs of cigarettes for the last 40 years as noted. He also admits to previous chronic alcoholism and polysubstance abuse with cocaine and crack as noted. REVIEW OF SYSTEMS: As mentioned above, admits to generalized body weakness with episodic bouts of dizziness and lightheadedness, worse in the last few days prior to admission with bifrontal headaches and visual blurring as noted. His oral intake has been variable with nausea, dyspepsia and vague upper abdominal pains with supervening marked polyuria, nocturia and polydipsia as noted. Also admits to lower extremity paresthesias especially nocturnally. PHYSICAL EXAMINATION: GENERAL: This is an average built male, in no apparent distress. VITAL SIGNS: Blood pressure of 140/80; pulse of 70 beats per minute, regular; temperature 98; respirations 20. LABORATORY DATA: The chemistry showed a BUN of 20, sodium 133, potassium 4.5, chloride 99, CO2 of 23, glucose 421 and creatinine 0.6. His hemoglobin A1c is 12.7%. His triglyceride levels are 1508 with a cholesterol of 423 and LDL of 77, HDL of 30. ASSESSMENT: This is a 62-year-old male with uncontrolled and decompensated type 2 insulin-requiring diabetes, presenting here with marked hyperglycemic accelerations and clinical and biochemical evidence of dehydration and prerenal azotemia with spurious hyponatremia. He also has expectedly elevated lipid levels with marked dyslipidemia, most likely related to poorly-controlled type 2 insulin-requiring diabetes. We have to exclude, however, the possibility of a familial chylomicronemia syndrome as noted thereof. He also has diabetic macrovascular complications of coronary artery disease and peripheral arterial disease and vasculopathy with prior stent placements in both his coronaries and his left lower extremity as mentioned. He also has diabetic microvascular complications of polyneuropathy and retinopathy as noted. PLAN OF MANAGEMENT: As discussed with the patient and the staff, we will modify his current insulin regimen and switch him over to a more physiologic basal and bolus insulin drug combination to improve his glucose toxicity and also his metabolic and clinical symptoms thereof. A hemoglobin A1c has been done and to repeat the chemistries and supplement accordingly as needed. We will add Lantus given as 20 units subcu at bedtime daily to start tonight. We will also add Humalog given as 8 units subcu t.i.d. before meals to start today. We will modify the coverage scale to obviate hypoglycemia and detailed orders have been given. We will follow and advise accordingly. Tatiana Mayo MD
[2017-11-23] MEDS: Enoxaparin 40 mg Syringe SC SCH (18:10)
[2017-11-23] MEDS ORDERED: Insulin Detemir 100 units/ml Vial (Levemir) SC SCH ×2 (22:00)
--- NOTE | 2017-11-24 05:27 | CON ---
DATE: 11/23/2017 CARDIOLOGY CONSULTATION REASON FOR CONSULTATION: Chest pain. HISTORY OF PRESENT ILLNESS: The patient is a 62-year-old white male who has a history of coronary artery disease, status post coronary stenting some 7 years ago and was followed by the freelance operator in [facility] by [facility]. The patient also has left lower extremity stenting following that. Although the patient stated that his coronary stent was 1 year ago to the emergency room team, he mentioned to me was about 7 years ago. The patient has history of colon cancer, status post resection. He presented because of left-sided chest pain radiating to the left arm, constant and sharp in nature. The patient denies any associated diaphoresis or shortness of breath. SOCIAL HISTORY: The patient is a smoker. He quit drinking. He lives in his own apartment, his parents live upstairs and he moved from [facility] to [place] recently. MEDICATIONS: The patient was taking no medications and was seen no physician for the past few years. PHYSICAL EXAMINATION: GENERAL: The patient is a middle-aged male who does not appear to be in any distress. VITAL SIGNS: Blood pressure 92/64, heart rate 66, temperature 98.4, respiration 18. HEENT: Normocephalic. NECK: No JVD. CHEST: Clear. Heart: S1 and S2, regular. ABDOMEN: Soft. EXTREMITIES: No edema. LABORATORY DATA: Urine drug screen is negative. SMA-7: Sodium 136, potassium 4.6, chloride 103, CO2 24, glucose 175, BUN 12, creatinine 0.5. Troponin was 0.07, 0.08 and 0.08. Glucose on admission was 421. PT/PTT and INR are within normal limits. Hemoglobin, hematocrit, white count and platelet count are within normal limits. EKG revealed sinus rhythm with . Chest CT angio revealed no evidence of thoracic aortic aneurysm or dissection. No central pulmonary emboli; large midline anterior abdominal wall periumbilical hernia containing colon and small bowel. ASSESSMENT: 1. Chest pain and troponin in the indeterminate range. 2. History of coronary artery disease, status post coronary stenting. 3. Uncontrolled diabetes mellitus. 4. Peripheral vascular disease, status post left lower extremity stenting. RECOMMENDATIONS: Continue current aspirin 81 mg once a day, Lipitor 20 mg once a day, Nicoderm patch, TriCor at 145 mg once a day. Start Plavix 75 mg once a day, Lopressor 25 mg daily, subcutaneous Lovenox at 40 mg daily. I would review the echocardiographic study. Medical therapy will be justified in view of the patient's very poor compliance and the fact that he is not taking any medications not even for his diabetes and once the patient improves his compliance then cardiac catheterization with a possible intervention will be considered. Hari Santamaria MD
[2017-11-24] MEDS: Sodium Chloride 0.9% 1,000 ML IV SCH ×3 (06:10→21:12)
[2017-11-24 06:25] LABS: BASO # 0.05 K/mm3 (0.0-2.0); EOS # 0.1 (0.0-0.7); EOS % 2.9 % (1.5-5.0); GRAN # 2.02 (1.4-6.5); GRAN % 41.9 % (50.0-68.0); HEMOGLOBIN 14.2 g/dL (14.0-18.0); LYMPH # 2.2 (1.2-3.4); LYMPH % 45.1 % (22.0-35.0); MEAN CORPUSCULAR HEMOGLOBIN 30.8 pg (25.0-35.0); MEAN CORPUSCULAR HGB CONC 35.4 g/dl (31.0-37.0); MEAN PLATELET VOLUME 9.7 fl (7.0-11.0); MONO # 0.4 (0.1-0.6); MONO % 9.1 % (1.0-6.0); RBC 4.61 10^6/uL (3.5-6.1); RED CELL DISTRIBUTION WIDTH 12.8 % (11.5-14.5); WHITE BLOOD COUNT 4.8 10^3/ul (4.5-11.0)
[2017-11-24 07:00] LABS: LDL CHOLESTEROL 57 mg/dL (0-129)
[2017-11-24 07:08] LABS: ALB/GLOB RATIO 0.9 (1.1-1.8); ALBUMIN 3.2 g/dL (3.0-4.8); ALT/SGPT 22 U/L (7-56); AST/SGOT 18 U/L (17-59); BLOOD UREA NITROGEN 15 mg/dL (7-21); CALCIUM 8.2 mg/dL (8.4-10.5); GFR NON-AFRICAN AMERICAN > 60; HDL CHOLESTEROL 27 mg/dL (29-60)
[2017-11-24] MEDS: Insulin Lispro 1 UNITS/0.01 ML SC SCH ×3 (08:17→17:19)
[2017-11-24] MEDS: Insulin Lispro (humaLOG) LOW Coverage SC SCH ×4 (08:17→22:00)
[2017-11-24] MEDS: Pantoprazole 40 mg EC Tab PO SCH (08:18)
[2017-11-24] MEDS: Enoxaparin 40 mg Syringe SC SCH (09:37)
[2017-11-24] MEDS ORDERED: Magnesium Sulfate 2 gm/50 ml 2 GM/50 ML BAG IVPB ONE (10:04)
--- NOTE | 2017-11-24 12:56 | CARD ---
APPROVED REPORT Date of service: 11/23/2017 EXAM: Two-dimensional and M-mode echocardiogram with Doppler and color Doppler. INDICATION Cardiac Disease: CAD Chest Pain 2D DIMENSIONS Left Atrium (2D)3.7 (1.6-4.0cm)IVSd1.4 (0.7-1.1cm) LVDd4.2 (3.9-5.9cm)PWd1.3 (0.7-1.1cm) LVDs2.8 (2.5-4.0cm)FS (%) 33.4 % LVEF (%)62.5 (>50%) M-Mode DIMENSIONS Aortic Root3.00 (2.2-3.7cm)Aortic Cusp Exc.1.80 (1.5-2.0cm) Aortic Valve AoV Peak Lzdjlouw825.0cm/Bryce Peak GR.8mmHg Mitral Valve MV E Etkjtrws97.0cm/sMV A Chxqacyy23.8cm/sE/A ratio0.7 TDI E/Lateral E'0.0E/Medial E'0.0 Tricuspid Valve TR Peak Vzuikpih610sh/sRAP [id number] Peak Gr.23mmHg [id number] LEFT VENTRICLE The left ventricle is normal size. There is mild concentric left ventricular hypertrophy. The left ventricular function is normal. The left ventricular ejection fraction is within the normal range.Ej.Fr: 63%. Transmitral Doppler flow pattern is Grade I-abnormal relaxation pattern. RIGHT VENTRICLE The right ventricle is normal size. The right ventricular systolic function is normal. ATRIA The left atrium size is normal. The right atrium size is normal. AORTIC VALVE Aortic Valve thickened. Opening Normal. MITRAL VALVE Mitral Leaflets Thickened but Opening Normal. TRICUSPID VALVE The tricuspid valve is normal in structure. There is mild tricuspid regurgitation. RVSP 33mm Hg. PERICARDIAL EFFUSION There is no pericardial effusion. <Conclusion> The left ventricle is normal size. There is mild concentric left ventricular hypertrophy. The left ventricular function is normal. The left ventricular ejection fraction is within the normal range.Ej.Fr: 63%. Transmitral Doppler flow pattern is Grade I-abnormal relaxation pattern. The right ventricle is normal size. The right ventricular systolic function is normal. The left atrium size is normal. The right atrium size is normal. Aortic Valve thickened. Opening Normal. Mitral Leaflets Thickened but Opening Normal. The tricuspid valve is normal in structure. There is mild tricuspid regurgitation. RVSP 33mm Hg. There is no pericardial effusion.
--- NOTE | 2017-11-24 13:56 | PN ---
DATE: 11/24/2017 SUBJECTIVE: The patient denies experiencing chest pain or shortness of breath. PHYSICAL EXAMINATION: VITAL SIGNS: Blood pressure 101/62, heart rate 82, temperature 97.8, respirations 18. HEENT: Normocephalic. CHEST: Minimal rhonchi. HEART: S1 and S2 regular. EXTREMITIES: No edema. LABORATORY DATA: Today's SMA-7 is within normal limits except for glucose of 160 and creatinine 0.5. Triglycerides are 1450, total cholesterol 270, both are significantly elevated. Today's hemoglobin and hematocrit 14.2 and 41.1, white count and platelet count are within normal limit. ASSESSMENT: 1. Chest pain with troponin is in the indeterminate range. 2. Uncontrolled diabetes mellitus. 3. History of coronary artery stenting and left lower extremity stenting. 4. Extreme noncompliance. RECOMMENDATIONS: Continue current conservative medical approach including dual antiplatelet therapy, aspirin 81 mg once a day, Plavix 75 mg once a day. Continue Lipitor 20 mg once a day, Lopressor at 40 mg daily, TriCor at 145 mg once a day. Hari Santamaria MD
--- NOTE | 2017-11-24 14:31 | PN ---
DATE: 11/24/2017 ENDOCRINOLOGY FOLLOWUP NOTE LOCATION: Room 264. SUBJECTIVE: This is a 62-year-old male with recent uncontrolled type 2 insulin-requiring diabetes presented here with marked hyperglycemic accelerations and is now being followed closely for metabolic management. His glycemic levels are fluctuating, but improved and the glucose values have ranged from 212 to 234 mg/dL. His latest chemistry showed a BUN of 16. Sodium 135, potassium 4.1, chloride 106, CO2 of 23. Glucose 260. Creatinine 0.5. His triglycerides levels are at 1450 with a cholesterol of 270 and lipase of 100. So at this time, we will modify once again his basal and bolus insulin regimen and increase the Levemir to 30 units subcu at bedtime daily to start tonight. We will continue the Humalog given as 12 units subcu t.i.d. before meals as ordered. We will obtain serial chemistries and supplement accordingly as needed. We will follow. Tatiana Maoy MD
--- NOTE | 2017-11-24 19:07 | CP.PCM.PN ---
Subjective - Date & Time of Evaluation Date of Evaluation: 11/24/17 Time of Evaluation: 11:00 - Subjective Subjective: INTERNAL MEDICINE PROGRESS NOTE FOR DR. TOM Echols D.O. PGY-1 Pt seen and examined at bedside this am. Pt continues to complain of shoulder pain. He denies any other complaints. He denies fevers, chills, headache, dizziness, chest pain, palpitations, shortness of breath, nausea, vomiting, constipation, diarrhea, dysuria. Objective - Vital Signs/Intake and Output Vital Signs (last 24 hours): Temp Pulse Resp BP Pulse Ox 98.6 F 60 18 125/77 93 L 11/24/17 17:31 11/24/17 17:31 11/24/17 17:31 11/24/17 17:31 11/24/17 06:00 Intake and Output: 11/24/17 11/25/17 18:59 06:59 Intake Total 1680 Output Total 2150 Balance -470 - Medications Medications: Current Medications Albuterol/Ipratropium (Duoneb 3 Mg/0.5 Mg (3 Ml) Ud) 3 ml IH Q4H PRN PRN Reason: Shortness of Breath Aspirin (Aspirin Chewable) 81 mg PO DAILY [facility] Last Admin: 11/24/17 09:37 Dose: 81 mg Atorvastatin Calcium (Lipitor) 20 mg PO DIN [facility] Last Admin: 11/24/17 17:20 Dose: 20 mg Clopidogrel Bisulfate (Plavix) 75 mg PO DAILY [facility] Last Admin: 11/24/17 09:36 Dose: 75 mg Dextrose (Dextrose 50% Inj) 0 ml IV STAT PRN; Protocol PRN Reason: Hypoglycemia Protocol Enoxaparin Sodium (Lovenox) 40 mg SC DAILY [facility]; Protocol Last Admin: 11/24/17 09:37 Dose: 40 mg Fenofibrate (Tricor) 145 mg PO DAILY [facility] Last Admin: 11/24/17 09:36 Dose: 145 mg Dextrose (Dextrose 5% In Water 1000 Ml) 1,000 mls @ 0 mls/hr IV .Q0M PRN; Protocol PRN Reason: Hypoglycemia Protocol Sodium Chloride (Sodium Chloride 0.9%) 1,000 mls @ 100 mls/hr IV .Q10H [facility] Last Admin: 11/24/17 09:36 Dose: 100 mls/hr Insulin Detemir (Levemir) 30 unit SC HS [facility] Insulin Human Lispro (Humalog Low) 0 units SC ACHS [facility]; Protocol Last Admin: 11/24/17 16:52 Dose: Not Given Insulin Human Lispro (Humalog) 12 units SC AC [facility] Last Admin: 11/24/17 17:19 Dose: 12 units Metoprolol Tartrate (Lopressor) 25 mg PO BRKDIN [facility] Last Admin: 11/24/17 17:20 Dose: 25 mg Nicotine (Nicoderm Cq) 1 patch TD DAILY [facility] Last Admin: 11/24/17 09:35 Dose: 1 patch Pantoprazole Sodium (Protonix Ec Tab) 40 mg PO ACB [facility] Last Admin: 11/24/17 08:18 Dose: 40 mg - Labs Labs: 11/24/17 06:00 11/24/17 06:00 PT 11.0 SECONDS (9.4-12.5) 11/22/17 09:40 INR 0.96 11/22/17 09:40 APTT 26.5 Seconds (25.1-36.5) 11/22/17 09:40 - Constitutional Appears: Well, Non-toxic, No Acute Distress - Head Exam Head Exam: NORMAL INSPECTION, NORMOCEPHALIC - Eye Exam Eye Exam: EOMI, Normal appearance - ENT Exam ENT Exam: Mucous Membranes Moist, Normal Exam - Neck Exam Neck Exam: Normal Inspection. absent: Meningismus - Respiratory Exam Respiratory Exam: Clear to Ausculation Bilateral, NORMAL BREATHING PATTERN - Cardiovascular Exam Cardiovascular Exam: REGULAR RHYTHM, +S1, +S2 - GI/Abdominal Exam GI & Abdominal Exam: Soft, Hernia (umbilical) - Extremities Exam Extremities Exam: Normal Inspection. absent: Calf Tenderness - Back Exam Back Exam: NORMAL INSPECTION - Neurological Exam Neurological Exam: Alert, Awake, Oriented x3 - Psychiatric Exam Psychiatric exam: Normal Affect, Normal Mood - Skin Skin Exam: Dry, Intact, Warm Assessment and Plan - Assessment and Plan (Free Text) Assessment: 62-year-old male with past medical history significant for hypertension, type 2 diabetes, coronary artery disease, peripheral artery disease status post stent to the left leg, and colon cancer status post resection that presented to the emergency room with chest pain. Plan: Chest pain. Rule out ACS Follow up troponins 0.7, 0.8, 0.8 TSH within normal limits. ProBNP 52.5. CTA negative for thoracic/aortic aneurysm/dissection Hgb A1c: 12.7 Follow up 2-D echo. Cardiology consulted, follow-up recommendations. Started on aspirin and Lipitor. Monitor on telemetry. Hypotension. Unclear etiology. Obtain orthostatic vital signs Continue with normal saline at 100 mL an hour. Hold beta-du Follow up cardio recommendations. Hypertriglyceridemia. Triglycerides 1508. Started on fenofibrate and Lipitor. Patient counseled on diet and exercise. Endocrinology consulted. Appreciate recs Type 2 diabetes, uncontrolled with hyperglycemia. Patient does not take any medications at home. Patient started on lispro AC and detemir HS per endocrinology recs Patient started on insulin sliding scale. Follow-up hemoglobin A1c. Monitor Accu-Cheks. Diabetic diet. Endocrinology consulted. Left shoulder pain. Left shoulder x-ray per radiologist shows normal radiographs of the left shoulder. Continue to monitor for now. f/u with PMD Coronary artery disease. Patient does not take any medications at home. Patient started on aspirin and Lipitor. Cardiology consulted, follow-up recommendations. Beta du held as patient hypotensive. History of peripheral artery disease with stent placement in left lower extremity. He does not take any medications at home Continue with aspirin, atorvastatin Tobacco abuse. Likely has underlying COPD. Patient counseled on cessation. Patient started on nicotine patch Patient should follow up with outpatient turpentine farmer for PFT testing. Patient placed on nebulizer treatments as needed. Chest x-ray per radiologist shows no active disease. DVT/GI PPx: Hep/Protonix Case seen, examined and discussed with attending physician, Dr. Cruz
[2017-11-24] MEDS ORDERED: Insulin Detemir 100 units/ml Vial (Levemir) SC SCH (22:00)
[2017-11-25 01:16] VITALS: RESP 20
[2017-11-25] MEDS: Sodium Chloride 0.9% 1,000 ML IV SCH (04:36)
--- NOTE | 2017-11-25 04:59 | CP.PCM.PN ---
Subjective - Date & Time of Evaluation Date of Evaluation: 11/25/17 - Subjective Subjective: INTERNAL MEDICINE PROGRESS NOTE FOR DR. TOM Echols D.O. PGY-1 Pt seen and examined at bedside this am. Objective - Vital Signs/Intake and Output Vital Signs (last 24 hours): Temp Pulse Resp BP Pulse Ox 98.2 F 53 L 20 120/73 95 11/25/17 00:01 11/25/17 01:58 11/25/17 00:01 11/25/17 00:01 11/25/17 00:01 Intake and Output: 11/24/17 11/25/17 18:59 06:59 Intake Total 1680 Output Total 2150 Balance -470 - Medications Medications: Current Medications Albuterol/Ipratropium (Duoneb 3 Mg/0.5 Mg (3 Ml) Ud) 3 ml IH Q4H PRN PRN Reason: Shortness of Breath Aspirin (Aspirin Chewable) 81 mg PO DAILY [facility] Last Admin: 11/24/17 09:37 Dose: 81 mg Atorvastatin Calcium (Lipitor) 20 mg PO DIN [facility] Last Admin: 11/24/17 17:20 Dose: 20 mg Clopidogrel Bisulfate (Plavix) 75 mg PO DAILY [facility] Last Admin: 11/24/17 09:36 Dose: 75 mg Dextrose (Dextrose 50% Inj) 0 ml IV STAT PRN; Protocol PRN Reason: Hypoglycemia Protocol Enoxaparin Sodium (Lovenox) 40 mg SC DAILY [facility]; Protocol Last Admin: 11/24/17 09:37 Dose: 40 mg Fenofibrate (Tricor) 145 mg PO DAILY [facility] Last Admin: 11/24/17 09:36 Dose: 145 mg Dextrose (Dextrose 5% In Water 1000 Ml) 1,000 mls @ 0 mls/hr IV .Q0M PRN; P rotocol PRN Reason: Hypoglycemia Protocol Sodium Chloride (Sodium Chloride 0.9%) 1,000 mls @ 100 mls/hr IV .Q10H PAKO Last Admin: 11/25/17 04:36 Dose: Not Given Insulin Detemir (Levemir) 30 unit SC HS [facility] Last Admin: 11/24/17 21:09 Dose: 30 unit Insulin Human Lispro (Humalog Low) 0 units SC ACHS [facility]; Protocol Last Admin: 11/24/17 22:00 Dose: Not Given Insulin Human Lispro (Humalog) 12 units SC AC [facility] Last Admin: 11/24/17 17:19 Dose: 12 units Metoprolol Tartrate (Lopressor) 25 mg PO BRKDIN [facility] Last Admin: 11/24/17 17:20 Dose: 25 mg Nicotine (Nicoderm Cq) 1 patch TD DAILY [facility] Last Admin: 11/24/17 09:35 Dose: 1 patch Pantoprazole Sodium (Protonix Ec Tab) 40 mg PO ACB [facility] Last Admin: 11/24/17 08:18 Dose: 40 mg - Labs Labs: 11/24/17 06:00 11/24/17 06:00 PT 11.0 SECONDS (9.4-12.5) 11/22/17 09:40 INR 0.96 11/22/17 09:40 APTT 26.5 Seconds (25.1-36.5) 11/22/17 09:40 - Constitutional Appears: Well, Non-toxic, No Acute Distress - Head Exam Head Exam: NORMAL INSPECTION, NORMOCEPHALIC - Eye Exam Eye Exam: EOMI, Normal appearance - ENT Exam ENT Exam: Mucous Membranes Moist, Normal Exam - Neck Exam Neck Exam: Normal Inspection. absent: Meningismus - Respiratory Exam Respiratory Exam: Clear to Ausculation Bilateral, NORMAL BREATHING PATTERN - Cardiovascular Exam Cardiovascular Exam: REGULAR RHYTHM, +S1, +S2 - GI/Abdominal Exam GI & Abdominal Exam: Soft, Hernia (large reducible umbilical hernia), Normal Bowel Sounds - Extremities Exam Extremities Exam: Normal Inspection. absent: Calf Tenderness - Back Exam Back Exam: NORMAL INSPECTION - Neurological Exam Neurological Exam: Alert, Awake, Oriented x3 - Psychiatric Exam Psychiatric exam: Normal Affect, Normal Mood - Skin Skin Exam: Dry, Intact, Warm Assessment and Plan - Assessment and Plan (Free Text) Assessment: 62-year-old male with past medical history significant for hypertension, type 2 diabetes, coronary artery disease, peripheral artery disease status post stent to the left leg, and colon cancer status post resection that presented to the emergency room with chest pain. Pt currently on telemetry floor as he has episodes of hypotension. Plan: Chest pain. Rule out ACS Follow up troponins x 3: 0.7, 0.8, 0.8 TSH within normal limits. ProBNP 52.5. CTA negative for thoracic/aortic aneurysm/dissection Hgb A1c: 12.7 Follow up 2-D echo. Cardiology consulted, follow-up recommendations. Started on aspirin and Lipitor. Monitor on telemetry. Hypotension. Unclear etiology. Orthostatic vitals signs: Lyin/75, Sittin/69, Standin/80 Continue with normal saline at 100 mL an hour. Beta du held yesterday. Re-started by cardio for today Follow up cardio recommendations. Hypertriglyceridemia. Triglycerides 1508. Started on fenofibrate and Lipitor. Patient counseled on diet and exercise. Endocrinology consulted. Appreciate recs Type 2 diabetes, uncontrolled with hyperglycemia. Patient does not take any medications at home. Patient started on lispro AC and detemir HS per endocrinology recs Patient started on insulin sliding scale. Follow-up hemoglobin A1c. Monitor Accu-Cheks. Diabetic diet. Endocrinology consulted. Left shoulder pain. Likely musculoskeletal. Left shoulder x-ray per radiologist shows normal radiographs of the left shoulder. Continue to monitor for now. Analgesics prn f/u with PMD outpatient Coronary artery disease. Patient does not take any medications at home. Patient started on aspirin and Lipitor. Continue home plavix Cardiology consulted, follow-up recommendations. Beta du held as patient hypotensive. History of peripheral artery disease with stent placement in left lower extremity. He does not take any medications at home Continue with aspirin, atorvastatin Tobacco abuse disorder Likely has underlying COPD. Patient counseled on cessation. Patient started on nicotine patch Patient should follow up with outpatient commercial sales director for PFT testing. Patient placed on nebulizer treatments as needed. Chest x-ray per radiologist shows no active disease. DVT/GI PPx: Lovenox/Protonix Case seen, examined and discussed with attending physician, Dr. Cruz
[2017-11-25 06:02] VITALS: O2SAT 100
[2017-11-25 07:02] LABS: BASO # 0.05 K/mm3 (0.0-2.0); BASO % 1.1 % (0.0-3.0); EOS # 0.1 (0.0-0.7); EOS % 2.3 % (1.5-5.0); GRAN # 1.86 (1.4-6.5); GRAN % 42.6 % (50.0-68.0); HEMOGLOBIN 14.3 g/dL (14.0-18.0); LYMPH # 1.9 (1.2-3.4); LYMPH % 43.5 % (22.0-35.0); MEAN CELL VOLUME 86.6 fl (80.0-105.0); MEAN CORPUSCULAR HEMOGLOBIN 30.4 pg (25.0-35.0); MEAN PLATELET VOLUME 9.5 fl (7.0-11.0); MONO # 0.5 (0.1-0.6); MONO % 10.5 % (1.0-6.0); RBC 4.71 10^6/uL (3.5-6.1); RED CELL DISTRIBUTION WIDTH 12.7 % (11.5-14.5); WHITE BLOOD COUNT 4.4 10^3/ul (4.5-11.0)
[2017-11-25 07:04] LABS: LDL CHOLESTEROL 102 mg/dL (0-129)
[2017-11-25 07:09] LABS: ALBUMIN 3.3 g/dL (3.0-4.8); ALT/SGPT 24 U/L (7-56); AST/SGOT 20 U/L (17-59); BLOOD UREA NITROGEN 10 mg/dL (7-21); CALCIUM 8.5 mg/dL (8.4-10.5); GFR NON-AFRICAN AMERICAN > 60; HDL CHOLESTEROL 30 mg/dL (29-60)
[2017-11-25] MEDS ORDERED: Magnesium Sulfate 2 gm/50 ml 2 GM/50 ML BAG IVPB ONE (07:30)
[2017-11-25] MEDS: Insulin Lispro (humaLOG) LOW Coverage SC SCH ×3 (08:34→17:06)
[2017-11-25] MEDS: Pantoprazole 40 mg EC Tab PO SCH (08:48)
[2017-11-25] MEDS: Insulin Lispro 1 UNITS/0.01 ML SC SCH ×3 (08:48→17:14)
--- NOTE | 2017-11-25 09:16 | CT ---
Date of service: 11/25/2017 PROCEDURE: CT of the left upper extremity without contrast HISTORY: Left shoulder pain COMPARISON: TECHNIQUE: CT of the left shoulder was performed with sagittal and coronal reconstructions. FINDINGS: There is no evidence of fracture. The glenohumeral joint and acromioclavicular joints are unremarkable. There is no joint effusion or muscular hemorrhage. The scapula is normal. IMPRESSION: Negative study
[2017-11-25] MEDS: Enoxaparin 40 mg Syringe SC SCH (10:04)
[2017-11-25 12:05] VITALS: BP 102/64; TEMP 97.1
--- NOTE | 2017-11-25 14:38 | CP.PCM.DIS ---
Provider - Provider Date of Admission: 11/23/17 10:14 Attending physician: Sirisha Cruz DO Primary care physician: NO FAMILY PROVIDER Consults: Cardiology: Dr. Santamaria Endocrinology: Dr. Mayo Time Spent in preparation of Discharge (in minutes): 45 Hospital Course - Lab Results Lab Results: Most Recent Lab Values WBC 4.4 10^3/ul (4.5-11.0) L 11/25/17 05:45 RBC 4.71 10^6/uL (3.5-6.1) 11/25/17 05:45 Hgb 14.3 g/dL (14.0-18.0) 11/25/17 05:45 Hct 40.8 % (42.0-52.0) L 11/25/17 05:45 MCV 86.6 fl (80.0-105.0) 11/25/17 05:45 MCH 30.4 pg (25.0-35.0) 11/25/17 05:45 MCHC 35.0 g/dl (31.0-37.0) 11/25/17 05:45 RDW 12.7 % (11.5-14.5) 11/25/17 05:45 Plt Count 193 10^3/uL (120.0-450.0) 11/25/17 05:45 MPV 9.5 fl (7.0-11.0) 11/25/17 05:45 Gran % 42.6 % (50.0-68.0) L 11/25/17 05:45 Lymph % (Auto) 43.5 % (22.0-35.0) H 11/25/17 05:45 [place] % (Auto) 10.5 % (1.0-6.0) H 11/25/17 05:45 Eos % (Auto) 2.3 % (1.5-5.0) 11/25/17 05:45 Baso % (Auto) 1.1 % (0.0-3.0) 11/25/17 05:45 Gran # 1.86 (1.4-6.5) 11/25/17 05:45 Lymph # (Auto) 1.9 (1.2-3.4) 11/25/17 05:45 [place] # (Auto) 0.5 (0.1-0.6) 11/25/17 05:45 Eos # (Auto) 0.1 (0.0-0.7) 11/25/17 05:45 Baso # (Auto) 0.05 K/mm3 (0.0-2.0) 11/25/17 05:45 PT 11.0 SECONDS (9.4-12.5) 11/22/17 09:40 INR 0.96 11/22/17 09:40 APTT 26.5 Seconds (25.1-36.5) 11/22/17 09:40 Sodium 136 mmol/L (132-148) 11/25/17 05:45 Potassium 3.9 mmol/L (3.6-5.0) 11/25/17 05:45 Chloride 107 mmol/L (98-107) 11/25/17 05:45 Carbon Dioxide 24 mmol/L (21-33) 11/25/17 05:45 Anion Gap 10 (10-20) 11/25/17 05:45 BUN 10 mg/dL (7-21) 11/25/17 05:45 Creatinine 0.5 mg/dl (0.8-1.5) L 11/25/17 05:45 Est GFR ( Amer) > 60 11/25/17 05:45 Est GFR (Non-Af Amer) > 60 11/25/17 05:45 POC Glucose (mg/dL) 214 mg/dL (65-110) H 11/25/17 11:08 Random Glucose 203 mg/dL (70-110) H 11/25/17 05:45 Hemoglobin A1c 12.7 % (4.2-6.5) H 11/22/17 12:45 Calcium 8.5 mg/dL (8.4-10.5) 11/25/17 05:45 Phosphorus 3.4 mg/dL (2.5-4.5) 11/25/17 05:45 Magnesium 1.6 mg/dL (1.7-2.2) L 11/25/17 05:45 Total Bilirubin 0.4 mg/dL (0.2-1.3) 11/25/17 05:45 AST 20 U/L (17-59) 11/25/17 05:45 ALT 24 U/L (7-56) 10/11/18 05:45 Alkaline Phosphatase 74 U/L (38-126) 11/25/17 05:45 Troponin I 0.08 ng/mL 11/23/17 03:43 NT-Pro-B Natriuret Pep 52.5 pg/mL (0-450) 11/22/17 09:40 Total Protein 6.6 g/dL (5.8-8.3) 11/25/17 05:45 Albumin 3.3 g/dL (3.0-4.8) 11/25/17 05:45 Globulin 3.3 gm/dL 11/25/17 05:45 Albumin/Globulin Ratio 1.0 (1.1-1.8) L 11/25/17 05:45 Triglycerides 603 mg/dL (35-160) H 11/25/17 05:45 Cholesterol 266 mg/dL (130-200) H 11/25/17 05:45 LDL Cholesterol Direct 102 mg/dL (0-129) 11/25/17 05:45 HDL Cholesterol 30 mg/dL (29-60) 11/25/17 05:45 Lipase 100 U/L (23-300) 11/24/17 06:00 TSH 3rd Generation 1.99 mIU/mL (0.46-4.68) 11/22/17 09:40 Urine Opiates Screen Negative (NEGATIVE) 11/23/17 00:18 Urine Methadone Screen Negative (NEGATIVE) 11/23/17 00:18 Ur Barbiturates Screen Negative (NEGATIVE) 11/23/17 00:18 Ur Phencyclidine Scrn Negative (NEGATIVE) 11/23/17 00:18 Ur Amphetamines Screen Negative (NEGATIVE) 11/23/17 00:18 U Benzodiazepines Scrn Negative (NEGATIVE) 11/23/17 00:18 U Oth Cocaine Metabols Negative (NEGATIVE) 11/23/17 00:18 U Cannabinoids Screen Negative (NEGATIVE) 11/23/17 00:18 Alcohol, Quantitative < 10 mg/dL (0-10) 11/22/17 12:45 - Hospital Course Hospital Course: Mr. Mccauley is a 62M with PMH HTN, DM, CAD (s/r stent 2017), PAD (s/p stent left leg), [place] 2917, Colon Cancer (s/p resection) who presented to [facility] with worsening sharp chest pain that has not been resolved with taking two 325mg ASA this am. Patient stated that he had intermittent chest pain chronically at rest but was concerned when his pain was not improving over the past 24 hours. He additionally complained of bilateral shoulder pain which he stated had been present since before his chest pain and endorsed that his left shoulder pain began after an injury moving a couch several months ago. He denied any aggravating or alleviating factors, CUTLER, neck pain, SOB, abdominal pain, and lower extremity pain. Aortic dissection protocol was ordered. CTA showed no signs of aneurysm or dissection. EKG showed a possible old sepal infarct. L shoulder xray and L shoulder CT scan were both negative. Echocardiogram LVEF showed >62.5%. Pt was followed by Dr. Santamaria from cardiology throughout hospital course who recommended pt be treated medically as pt was non-compliant with all of his medications. He was placed on aspirin, lipitor, tricor, plavix, lopressor during his hospital stay. Pt was evaluated and followed by Dr. Mayo from endocrinology. He was placed on basal and bolus insulin. Pt was noted to be hypotensive during several episodes in the hospital. He was given fluids, monitored closely until orthostatic vital signs were within normal limits. Upon day of discharge, pt had no acute complaints. He denies fevers, chills, headache, dizziness, chest pain, palpitations, shortness of breath, nausea, vomiting, constipation, diarrhea, dysuria. He was given extensive discharge instructions, and explained importance of compliance with medications. Discharge Exam - Head Exam Head Exam: NORMAL INSPECTION, NORMOCEPHALIC - Eye Exam Eye Exam: EOMI, Normal appearance - ENT Exam ENT Exam: Mucous Membranes Moist, Normal Exam - Neck Exam Neck exam: Normal Inspection - Respiratory Exam Respiratory Exam: NORMAL BREATHING PATTERN - Cardiovascular Exam Cardiovascular Exam: REGULAR RHYTHM, +S1, +S2 - GI/Abdominal Exam GI & Abdominal Exam: Normal Bowel Sounds, Unremarkable - Extremities Exam Extremities exam: pedal pulses present - Neurological Exam Neurological exam: Alert, CN II-XII Intact, Oriented x3 - Psychiatric Exam Psychiatric exam: Normal Affect, Normal Mood - Skin Skin Exam: Dry, Intact, Warm Discharge Plan - Discharge Medications Prescriptions: Aspirin [Aspirin Chewable] 81 mg PO DAILY #14 chew Atorvastatin [Lipitor] 40 mg PO DIN #14 tab Clopidogrel [Plavix] 75 mg PO DAILY #14 tab Fenofibrate [Tricor] 145 mg PO DAILY #14 tab Insulin Detemir [Levemir] 30 unit SC HS #1 vial Insulin Lispro [humALOG] 12 units SC AC #1 vial - Follow Up Plan Condition: GOOD Disposition: HOME/ ROUTINE Instructions: Troponin Test, Chest Pain (ED) Additional Instructions: Please follow up with a primary care doctor of your choice within 3-5 days. If you are unable to find a physician through your insurance company, an appointment has been made with Dr. Martínez at the [facility] on November for you. You will need to call your insurance company to notify them that Dr. Martínez will be your primary care doctor, should you choose to establish care with her. You will need to keep a log of your recorded blood sugars to keep track of your diabetes. Please take a blood sugar reading when you wake up, before you go to bed and before and after each meal. Please follow up with an store stocker within one week. You can find an store stocker through your insurance company or get referred to one at your appointment with your primary care doctor. Please follow up with Dr. Santamaria, the banana loader (heart doctor) who was taking care of you while you were at the hospital within one week. If your shoulder pain continues, you will need to be seen by an orthopedic doctor as an outpatient for further workup. Your banana loader (heart doctor) has recommended new medications for you to start taking as follows: Aspirin 81 mg. Please take 1 tablet by mouth every day Plavix 75mg. Please take 1 tablet by mouth every day Lipitor 40mg. Please take 1 tablet by mouth every day Tricor 145mg. Please take 1 tablet by mouth every day The store stocker (diabetes doctor) has recommended that you start taking insulin. Insulin requires that you use lancets (needles) to check your blood sugar level and syringes to inject the insulin. These will be prescribed to you today. There are two different types of insulin you will be starting: The first type of insulin is called "Levemir". This is long acting insulin. Please only take one time per day unless otherwise instructed by a doctor. You will need inject 30 units of Levemir once every night. The second type of insulin you will be starting is called "Humalog". This is a short acting insulin. You will need to inject 12 units before every meal that you eat. Please do not take any insulin if you skip any meals. You will be given detailed instructions by the pharmacist, as well as a diabetes instructor on how to use your insulin and check your blood sugar levels. Please return to the emergency department if any of your symptoms return. Referrals: Tatiana Mayo MD [Medical Doctor] - FAMILY PROVIDER,NO [Primary Care Provider] -
--- NOTE | 2017-11-25 16:05 | PN ---
DATE: 11/25/2017 FOLLOWUP SUBJECTIVE: The patient denies any chest pain. He complains of left shoulder pain related to recent fall of a bed that he was carrying. PHYSICAL EXAMINATION: VITAL SIGNS: Blood pressure 102/68, heart 64, temperature 97.7, respirations 20. HEENT: Normocephalic. CHEST: Clear. HEART: S1 and S2 regular. EXTREMITIES: No edema. LABORATORY DATA: Today's hemoglobin and hematocrit 14.3 and 40.8, white count 4.4, platelet count 193,000. Today's SMA-7 is within normal limits except for glucose 203 and creatinine 0.5. Total cholesterol is 266, triglycerides 603. Upper extremity CT scan was negative study. ASSESSMENT: 1. Chest pain. Troponin was in the indeterminate range. 2. History of coronary artery disease, status post coronary artery stenting in the past. 3. History of peripheral vascular disease, status post left lower extremity stenting. 4. Uncontrolled diabetes mellitus. 5. Hyperlipidemia. RECOMMENDATIONS: Case was discussed with the medical team. Continue aspirin 81 mg once a day. Increase Lipitor to 40 mg orally once a day. Continue Lopressor 25 mg twice a day, TriCor at 145 mg once a day. Conservative medical approach is recommended. Hari Santamaria MD
--- NOTE | 2017-11-25 16:44 | PN ---
DATE: 11/25/2017 ENDOCRINOLOGY FOLLOWUP NOTE LOCATION: Room 264. SUBJECTIVE: This is a 62-year-old male with recent uncontrolled type 2 insulin-requiring diabetes, now being followed closely for metabolic management. His glycemic levels are fluctuating, but much improved at this time and the glucose values overnight have been ranged from 182 to 285 mg/dL. His chemistry showed a BUN of 10. Sodium 136, potassium 3.9, chloride 107, CO2 of 24. Glucose 283. Creatinine 0.5. So at this time, we will continue the modified basal and bolus insulin regimen so allow for dose equilibration and keep the Humalog given as 12 units subcu t.i.d. before meals as ordered. We will modify the basal insulin with Levemir to be given as the higher dose of 34 units subcu at bedtime daily to start tonight. We will continue also the low-dose correction scale using Humalog insulin as given to obviate hypoglycemia and detailed orders have been given. We will obtain serial chemistries and supplement accordingly as needed. We will follow. Tatiana Mayo MD
[2017-11-25 17:16] VITALS: PULSE 58
== END 2017-11-25 18:40 | disposition home or self-care (01) | DRG 143 ==
LOC: EDBD 08:04 → ED 08:04 → ERH 10:35 → 2RNO 20:16 → OBSVTOIN 11-23 10:14
PROVIDERS: ADMIT Hospitalist; ATTEND Hospitalist
DX: R07.9 Chest pain, unspecified (principal); E87.1 Hypo-osmolality and hyponatremia; E86.0 Dehydration; E11.319 Type 2 diabetes mellitus with unspecified diabetic retinopathy without macular edema; E11.42 Type 2 diabetes mellitus with diabetic polyneuropathy; E11.51 Type 2 diabetes mellitus with diabetic peripheral angiopathy without gangrene; J44.9 Chronic obstructive pulmonary disease, unspecified; I25.10 Atherosclerotic heart disease of native coronary artery without angina pectoris; E11.65 Type 2 diabetes mellitus with hyperglycemia; I10 Essential (primary) hypertension; E78.5 Hyperlipidemia, unspecified; F17.200 Nicotine dependence, unspecified, uncomplicated; I95.9 Hypotension, unspecified; E78.1 Pure hyperglyceridemia; M25.512 Pain in left shoulder; I25.2 Old myocardial infarction; Z79.4 Long term (current) use of insulin; Z79.82 Long term (current) use of aspirin; Z85.038 Personal history of other malignant neoplasm of large intestine; Z91.14 Patient's other noncompliance with medication regimen; Z91.19 Patient's noncompliance with other medical treatment and regimen; Z95.5 Presence of coronary angioplasty implant and graft; Z95.820 Peripheral vascular angioplasty status with implants and grafts